=== PATIENT | female | born 1940 | race Hispanic/Latino ===

== ENCOUNTER → 2017-10-24 | Outpatient (CLI) | payer MEDICARE ==
[~2017-10-24] MED LIST: ASA81 MG; ATORVASTATIN CA20 MG PO; AZITHROMYCIN250 MG PO; CITALOPRAM HBR10 MG PO; CLOPIDOGREL75 MG PO; COLCRYS0.6 MG PO; DITROPAN XL5 M1; FAMOTIDINE20 MG PO; INDOCIN75 MG; METFORMIN HCL500 MG PO; RANEXA500 MG PO; REGADENOSON 0.4 MG/5 ML SYR IV ONE; SOTALOL PO; Z.0.FOSAMAX70 MG PO; Z.0.HYZAAR 100-251 E; Z.0.LOPRESSOR100 MG; Z.1.NITROFURANTOIN10
--- NOTE | 2017-10-25 07:50 | Cardiology Report ---
DATE OF STUDY: October 24, 2017 LEXISCAN NUCLEAR STRESS TEST INDICATION: Chest pain. TECHNIQUE: The patient was given 11 millicuries of Myoview. Resting images were obtained in the horizontal long axis, vertical long axis and short axis. The patient was then hooked up to the EKG machine and given IV Lexiscan infusion over 15 seconds. Immediately after Lexiscan infusion, the patient was given 30 millicuries of Myoview. Stress images were obtained in the horizontal long axis, vertical long axis and short axis. RESULTS 1. The resting EKG demonstrated normal sinus rhythm with some nonspecific ST and T wave changes. 2. There were no EKG changes and no symptoms during Lexiscan infusion. 3. The patient had some mildly decreased perfusion in the septum and anterior septum in both stress and rest. It represented a fixed defect. 4. There were normal left ventricular size and function with an ejection fraction of 54%. CONCLUSION: The patient has a small fixed defect in the septum and anterior septum. There is no reversible defect. There is no evidence of ischemia. There are normal left ventricular size and function with an ejection fraction of 54%. Job#: [id number]
== END ==
LOC: NM 10:47
PROVIDERS: ATTEND Internal Medicine Cardiovascular Disease
DX: I25.110 Atherosclerotic heart disease of native coronary artery with unstable angina pectoris (principal)
CPT/HCPCS: 78452; 93017; A9502

== ENCOUNTER 2019-12-13 03:53 | Emergency (ER) | payer MEDICARE ==
[~2019-12-13] VITALS: Ht 149.9 cm; Wt 52.6 kg
[~2019-12-13 03:53] MED LIST changes: -REGADENOSON 0.4 MG/5 ML SYR IV ONE
--- OUTSIDE RECORDS SUMMARY | 2019-12-13 03:56 | XMS REPORT | Continuity of Care Document ---
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, 2014 Active Procedures Date Description Comments Jul 24, 2014 smoking status never smoker Vital Signs Date Description Test Result Jul 24, 2014 weight E&M - 3141-9 WEIGHT 110 lb Jul 24, 2014 height E&M - 8302-2 HEIGHT 57 in Jul 24, 2014 blood pressure, systolic - 8480-6 BP SYSTOLIC 121 mm Hg Jul 24, 2014 blood pressure, diastolic - 8462-4 BP DIASTOLIC 68 mm Hg Jul 24, 2014 pulse rate E&M - 8867-4 PULSE RATE 61 /min Jul 24, 2014 temperature E&M TEMPERATURE 97.9 deg f Aug 13, 2014 weight E&M - 3141-9 WEIGHT 114.4 lb Aug 13, 2014 height E&M - 8302-2 HEIGHT 57 in Aug 13, 2014 temperature E&M TEMPERATURE 97.3 deg f Aug 13, 2014 pulse rate E&M - 8867-4 PULSE RATE 61 /min Aug 13, 2014 blood pressure, systolic - 8480-6 BP SYSTOLIC 113 mm Hg Aug 13, 2014 blood pressure, diastolic - 8462-4 BP DIASTOLIC 78 mm Hg
--- OUTSIDE RECORDS SUMMARY | 2019-12-13 03:56 | XMS REPORT | Continuity of Care Document ---
Author Author [facility] t Organization [facility] Address [address] [place] [address] [address]. [address] [place] [address] Phone Unavailable Care Team Providers Care Licensed Reactor Operator Name Role Phone MEDLATASHA Unavailable Payers Payer Name Policy Type Policy Number Effective Date Expiration Date S ource Problems Condition Name Condition Details Condition Category Status Onset Date Resolution Date Last Treatment Date Treating Clinician Comments Source SUBDURAL HEMATOMA SUBD URAL HEMATOMA Active 07/09/2014 Condition 08/13/2014 [facility] Condition Active 2014-07-09 00:00:00 2014-08-13 10:07:12 [facility] Allergies, Adverse Reactions, Alerts Allergy Name Allergy Type Status Severity Reaction(s) Onset Date Inacti ve Date Treating Clinician Comments Source No Known Allergies DA Active U 2019-04-10 00:00:00 [facility] No Known Contrast Allergies DA Active U 2001-03-06 00:00: 00 [facility] No Known Drug Allergies DA Active U 2001-03-06 00:00:00 [facility] No Known Food Allergies DA Active U 2001-03-06 00:00:00 [facility] No Known Other Allergies DA Active U 2001-03-06 00:00:00 [facility] Medications This patient has no known medications. Vital Signs Vital Name Observation Time Observation Value Comments Source Weight 2014-08-13 16:07:12 [facility] Height 2014-08-13 16:07:12 [facility] Temperature Oral (F) 2014-08-13 16:07:12 97.3 F [facility] Heart Rate 2014-08-13 16:07:12 [facility] Systolic (mm Hg) 2014-08-13 16:07:12 [facility] Diastolic (mm Hg) 2014-08-13 16:07:12 [facility] Weight 2014-07-24 19:46:10 [facility] Height 2014-07-24 19:46:10 [facility] Systolic (mm Hg) 2014-07-24 19:46:10 [facility] Diastolic (mm Hg) 2014-07-24 19:46:10 [facility] Heart Rate 2014-07-24 19:46:10 [facility] Temperature Oral (F) 2014-07-24 19:46:10 97.9 F [facility] Procedures This patient has no known procedures. Results Test Description Test Time Test Comments Results Result Comments Source - MRI BRAIN W WO CONT 2019-08-07 10:43:00 FAX: Sae Almazan MD [phone] [place]: B St: REG FAX: Cesar Lr MD [phone] Name: PHUONG OCASIO [facility]ly [facility] : 1940 Age/S: 78/F [address] Unit #: [id number] Loc: [place] [address] Phys: Sae Marie MD Acct: [id number] Dis Date: Status: REG CLI PHONE #: [phone] Exam Date: 08/07/2019 1031 FAX #: [phone] Reason: D32.0 EXAMS: CPT CODE: [id number] MRI BRAIN W WO CONT 80445 REASON FOR EXAM: D32.0 Exam Order Date: 08/07/2019 9:03 AM Attending M.D.: Sae Marie MD Procedure: - MRI BRAIN W WO CONT Comparison: Contrast-enhanced CT scan of the brain April 16, 2019 FINDINGS: Axial, sagittal, and coronal images of the head were obtained using T1, T2 weighted, inversion recovery, diffusion weighted, and gradient echo sequences. Intravenous gadolinium was given. Postsurgical changes of left-sided pterional craniotomy are better appreciated on the previous CT scan. No diffusion restricting or enhancing lesion is seen in the left middle cranial fossa to suggest resid ual meningioma. Small amount of sclerosis is seen in the left temporal lobe which may represent postsurgical changes. There are also microvascular ischemic changes of the periventricular white matter. No effacement of the cisterns or sulci and no midline shift. Additionally no abnormal meningeal enhancement is seen. No evidence of acute infarction. No intracranial hemorrhage or significant hemorrhagic products. IMPRESSION: Postsurgical changes of left peroneal craniotomy for a middle cranial fossa meningioma. No evidence of residual disease and no new intracranial masses. Microvascular ischemic changes of the white matter. Location: [facility] at 1043 Reported and signed by: Marty Gonzalez MD PAGE 1 Signed Report (CONTINUED) FAX: Sae Almazan MD [phone] [place]: St: [facility] FAX: Cesar Lr MD [phone] Name: PHUONG OCASIO [facility] : 1940 Age/S: 78/F [address] [facility] Unit #: [id number] [facility] [place] [address] Phys: Sae Marie MD Acct: [id number] Dis Date: Status: REG CLI PHONE #: [phone] Exam Date: 08/07/2019 1031 FAX #: [phone] Reason: D32.0 EXAMS: CPT CODE: [id number] MRI BRAIN W WO CONT 63349 <Continued> CC: Sae Marie MD; Cesar Palmer MD Technologist: Yinka Swann)(MR) Trnscrd Date/Time/By: 08/07/2019 (1043) : By: [email or web address] Orig Print D/T: S: 08/07/2019 (0274) PAGE 2 Signed Report BRAIN/MENINGES 2019-04-24 14:23:00 RUN DATE: 04/24/19 [facility] PAGE 1 RUN TIME: 1423 Specimen Inquiry RUN USER: INTERFACE PATIENT: PHUONG OCASIO LOC: [place] U #: [id number] AGE/SX: 78/F ROOM: [facility] RE04/15/19REG DR: Sae Marie MD : 40 BED: A DIS: 04/19/19 STATUS: DIS IN TLOC: SPEC #: [id number] RECD: 04/15/19 STATUS: ZEB CEJA #: [id number] PARRISH: 04/15/19 DR: Sae Marie MD ENTERED: 04/15/19 SP TYPE: BRAIN OTHR DR: Cesar Palmer MD ORDERED: GROSS COPIES TO: Sae Marie MD [address] [place], [place] [address] Cesar Palmer MD [address] [facility] [place], [place] [address] M ANTHONYKERS: FROZEN SECTIONS PROCEDURES: GROSS (04/24/19-1302) TISSUES: 1. BRAIN, NOS 2. BRAIN, NOS - TUMOR 3. BRAIN, NOS - TUMOR CLINICAL HISTORY COLLECTION DATE: 04/15/19 LEFT MEDIAL TEMPORAL AND SPHEROID WING MENINGIOMA COMMENT The histologic sections show a lesion formed of spindled cells with a whorled pattern and scattered psammoma bodies. The features are compatible with meningioma. Overt atypical features are not appreciated. The case was sent in consultation to Dr. Conchita Pena for classification and proliferation marker (Ki-67). Please refer to the consult report below. 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 It consists of two small portions of turner soft tissue measuring 0.4 and 0.5 cm in greatest dimension. Intraoperative touch preps are obtained. The specimen is entirely submitted as FSA. Frozen section diagnosis FSA/TP1: SUGGESTIVE OF MENINGIOMA (FA) The staining of the fresh frozen section is adequate. Reported at 9:50 am on 04/15/19 (FA) Specimen (2) is received in formalin, labeled with the patient's name and identified as "brain tumor" and consists of multiple portions of turner-pink soft tissue measuring 3.0 x 3.0 x 2.0 cm in aggregate. Cut section reveals turner-pink cut surface. Multiple financial sales representative portions are submitted as (2A-2C). Specimen (3) is received and labeled as "brain tumor", it is received in a suction bag and are multiple portions of turner soft tissue measuring 1.0 x 0.7 x 0.2 cm in aggregate. It is entirely submitted as (3A). GROSS PERFORMED AT [facility] [address] [place] [address] [id number] (p)[phone] MICROSCOPIC All of the stains, including any controls performed, stain appropriately. 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 The Ki-67 labeling index is 4 .2% which is appropriate for WHO grade I meningioma. MICROSCOPIC DESCRIPTION: Each section has similar histopathologic features including a tumor that is spindled with vague whirl formation and occasional psammoma body formation. No atypical features are identified. The tumor is moderately cellular. Mitoses are not excessive. No brain invasion is identified. THe morphologic phenotype is transitional. Immunoperoxidase stains for Ki-67 confirm a labeling index of 4.2%. PERFORMING SITE Diagnosis performed at: [facility] [address] [place] [address] Signed SIGNATURE ON FILE Jorden Valles MD 04/24/19 1423 END OF REPORT GLUBED 2019-04-19 11:42:00 Test Item GLUBED (test code = GLUBED) 181 mg/dL 74-106 H Performed by certified seismograph operator helper at [facility] [id number] 07:29:00* Test Item Value Reference Range Interpretation Comments GLUBED (test code = GLUBED) 129 mg/dL 74-106 H Performed by certified seismograph operator helper at [facility] [id number] 23:58:00* Test Item Value Reference Range Interpretation Comments GLUBED (test code = GLUBED) 142 mg/dL 74-106 H Performed by certified seismograph operator helper at [facility] [id number] 20:31:00* Test Item Value Reference Range Interpretation Comments GLUBED (test code = GLUBED) 151 mg/dL 74-106 H Performed by certified seismograph operator helper at [facility] [id number] 12:11:00* Test Item Value Reference Range Interpretation Comments GLUBED (test code = GLUBED) 154 mg/dL 74-106 H Performed by certified seismograph operator helper at [facility] [id number] 08:22:00* Test Item Value Reference Range Interpretation Comments GLUBED (test code = GLUBED) 112 mg/dL 74-106 H Performed by certified seismograph operator helper at [facility] [id number] 20:25:00* Test Item Value Reference Range Interpretation Comments GLUBED (test code = GLUBED) 170 mg/dL 74-106 H Performed by certified seismograph operator helper at [facility] [id number] 16:41:00* Test Item Value Reference Range Interpretation Comments GLUBED (test code = GLUBED) 220 mg/dL 74-106 H Performed by certified seismograph operator helper at [facility] [id number] 12:47:00* Test Item Value Reference Range Interpretation Comments GLUBED (test code = GLUBED) 204 mg/dL 74-106 H Performed by certified seismograph operator helper at [facility] [id number] 08:25:00* Test Item Value Reference Range Interpretation Comments GLUBED (test code = GLUBED) 145 mg/dL 74-106 H Performed by certified seismograph operator helper at [facility] [id number] 21:01:00* Test Item Value Reference Range Interpretation Comments GLUBED (test code = GLUBED) 154 mg/dL 74-106 H Performed by certified seismograph operator helper at [facility] [id number] 15:44:00* Test Item Value Reference Range Interpretation Comments GLUBED (test code = GLUBED) 167 mg/dL 74-106 H Performed by certified seismograph operator helper at [facility] [id number] 11:37:00* Test Item Value Reference Range Interpretation Comments GLUBED (test code = GLUBED) 171 mg/dL 74-106 H Performed by certified seismograph operator helper at [facility] [id number] 07:49:00* Test Item Value Reference Range Interpretation Comments GLUBED (test code = GLUBED) 176 mg/dL 74-106 H Performed by certified seismograph operator helper at [facility] - CT HD/BR W W/O [id number] 06:11:00 Name: PHUONG OCASIO [facility] : 1940 Age/S: 78 / F [address] [facility] Unit #: [id number] Loc: [place] [address] Phys: Sae Marie MD Acct: [id number] Dis Date: Status: ADM IN PHONE #: [phone] Exam Date: 04/16/2019 0455 FAX #: [phone] Reason: Post-op EXAMS: CPT CODE: [id number] CT HD/BR W W/O CONT 87251 HISTORY: Left medial temporal and sphenoid wing meningioma TECHNIQUE: Pre- and postcontrast 2.[address] of the head. Examination acquired within 24 hours of arrival. Automated exposure control for dose reduction. COMPARISON: Previous day FINDINGS: Status post left pterional craniotomy with complete removal of left middle cranial fossa meningioma. Small postoperative extra-axial fluid and pneumocephalus. No acute hemorrhage. No CT evidence of acute infarct. Mild periventricular chronic microvascular ischemic changes. No abnormal enhancement. No hydrocephalus. No extra-axial fluid collection. Atherosclerotic vascular calcification of the carotid siphons. 4 mm distal left ICA aneurysm is unchanged. Opacified left maxillary sinus. Mastoid air cells and middle ear cavities are clear. Bilateral lens implants. Left scalp postsurgical changes and skin kobe. IMPRESSION: Status post left pterional craniotomy with complete removal of left middle cranial fossa meningioma. at 0611 Reported and signed by: Azra Butt D.O. CC: Sae Marie MD; Cesar Palmer MD Technologist:JEFF MURGUIA CTDI: DLP: Trnscb Date/Time: 04/16/2019 (0611) [email or web address] Orig Print D/T: S: 04/16/2019 (0614) PAGE 1 Signed Report - CT HEAD/BRAIN [id number] 06:06:00 Name: PHUONG OCASIO [facility] : 1940 Age/S: 78 / F [address] Unit #: [id number] Loc: [place] [address] Phys: Sae Marie MD Acct: [id number] Dis Date: Status: ADM IN PHONE #: [phone] Exam Date: 04/15/201944 FAX #: [phone] Reason: SURGERY Report Has Been Amended EXAMS: CPT CODE: [id number] CT HEAD/BRAIN W/CONT 62044 Addendum - 04/16/2019 SIGNED 04/16/2019 ADDENDUM: [id number] CT/CTHDBRW Findings communicated with Dr. Marie on 04/15/19 0801 hours. at 0606 Reported and signed by: Azra Butt D.O. Transcribed: 04/16/2019 (0606) [email or web address] Report HISTORY: Left medial temporal and sphenoid wing meningioma TECHNIQUE: Contrast-enhanced 1.[address] of the head after intravenous administration of 100 mL Isovue contrast sagittal and coronal reformatted images were generated. Examination acquired within 24 hours of arrival. Automated exposure control for dose reduction. COMPARISON: None FINDINGS: Avidly enhancing left middle cranial fossa meningioma, measuring 3.2 x 2.1 x 3.0 cm (AP x TV x CC). Lesion abuts the left cavernous sinus and Meckel's cave without evidence of infiltration. Associated lateral displacement of the left temporal lobe without significant mass effect or herniation. No abnormal enhancement. No acute hemorrhage. No CT evidence of acute infarct. Mild periventricular chronic microvascular ischemic changes. No intracranial mass or mass effect. No hydrocephalus. No extra-axial fluid collection. Atherosclerotic vascular calcification of the carotid siphons. 4 mm p osteriorly projecting saccular aneurysm of the distal left supraclinoid IC A. Opacified left maxillary sinus. Mastoid air cells and middle ea r cavities are clear. Bilateral lens implants. Calvarium and skull base are intact. IMPRESSION: PAGE 1 Signed Report (CONTINUED) Name: PHUONG OCASIO [facility] : 1940 Age/S: 78 / F [address] Unit #: [id number] Loc: [place] [address] Phys: Sae Marie MD Acct: [id number] Dis Date: Status: ADM IN PHONE #: [phone] Exam Date: 743 FAX #: [phone] Reason: SURGERY Report Has Been Am ended EXAMS: CPT CODE: [id number] CT HEAD/BRAIN W/CONT 60211 < Continued> Avidly enhancing 3.2 cm left middle cranial fossa meningioma. 4 mm posteriorly projecting saccular aneurysm of the distal left supraclinoid ICA. at 0808 Reported and signed by: Azra Butt D.O. CC: Sae Marie MD; Cesar Palmer MD Technologist:Jose Collins RT(R),(MR),(CT); CTDI: DLP: Trnscb Date/Time: 04/15/2019 (08) [email or web address] Orig Print D/T: S: 04/15/2019 (0812) PAGE 2 Signed Report BASIC METABOLIC [id number] 04:28:00* Test Item Value Reference Range Interpretation Comments SODIUM (test code = NA) 146 mmol/L 136-145 H POTASSIUM (test code = K) 3.5 mmol/L 3.5-5.1 N CHLORIDE (test code = CL) 112.0 mmol/L 98-107 H CARBON DIOXIDE (test code = CO2) 22.0 mmol/L 21-32 N ANION GAP (test code = GAP) 15.5 10-20 N GLUCOSE (test code = GLU) 166 mg/dL 74-106 H BLOOD UREA NITROGEN (test code = BUN) 16 mg/dL 7-18 N GLOMERULAR FILTRATION RATE (test code = GFR) > 60 mL/min >=60 Estimated GFR by using Modified MDRD formula.Chronic kidney disease is defined as either kidney damageor GFR <60 mL/min/1.73 m2 for >3 months. CREATININE (test code = CREAT) 0.70 mg/dL 0.55-1.02 N Note change in reference range due to change in reagent. BUN/CREATININE RATIO (test code = BUN/CREA) 23.2 10-20 H CALCIUM (test code = CA) 8.4 mg/dL 8.5-10.1 L [id number] 04:28:00* Test Item Value Reference Range Interpretation Comments MAGNESIUM (test code = MAG) 1.5 mg/dL 1.8-2.4 L BASIC METABOLIC [id number] 04:22:00* Test Item Value Reference Range Interpretation Comments SODIUM (test code = NA) 146 mmol/L 136-145 H POTASSIUM (test code = K) 3.5 mmol/L 3.5-5.1 N CHLORIDE (test code = CL) 112.0 mmol/L 98-107 H CARBON DIOXIDE (test code = CO2) mmol/L 21-32 ANION GAP (test code = GAP) 10-20 GLUCOSE (test code = GLU) mg/dL 74-106 BLOOD UREA NITROGEN (test code = BUN) mg/dL 7-18 GLOMERULAR FILTRATION RATE (test code = GFR) mL/min >=60 CREATININE (test code = CREAT) mg/dL 0.55-1.02 BUN/CREATININE RATIO (test code = BUN/CREA) 10-20 CALCIUM (test code = CA) mg/dL 8.5-10.1 [id number] 04:22:00* Test Item Value Reference Range Interpretation Comments MAGNESIUM (test code = MAG) mg/dL 1.8-2.4 CBC W/O [id number] 04:08:00* Test Item Value Reference Range Interpretation Comments WHITE BLOOD CELL (test code = WBC) 15.9 K/mm3 4.5-12.5 H RED BLOOD CELL (test code = RBC) 4.12 mill/mm3 3.7-5.2 N HEMOGLOBIN (test code = HGB) 8.4 gram/dL 11.5-15.5 L HEMATOCRIT (test code = HCT) 29.4 % 36.0-46.0 L MEAN CELL VOLUME (test code = MCV) 71.4 fL 80-98 L MEAN CELL HGB (test code = MCH) 20.4 picogram 27.0-33.0 L MEAN CELL HGB CONCETRATION (test code = MCHC) 28.6 gram/dL 33.0-36. 0 L RED CELL DISTRIBUTION WIDTH (test code = RDW) 24.8 % 11.6-16. 2 H PLATELET COUNT (test code = PLT) 296 K/mm3 150-450 N MEAN PLATELET VOLUME (test code = MPV) 9.4 fL 6.7-11.0 N [id number] 21:16:00* Test Item Value Reference Range Interpretation Comments GLUBED (test code = GLUBED) 134 mg/dL 74-106 H Performed by certified seismograph operator helper at [facility] - XR CHEST 1 [id number] 14:20:00 FAX: Santos Hoskins [phone] [place]: St: ADM FAX: Sae Almazan MD [phone] FAX: Cesar Lr MD [phone] Name: PHUONG OCASIO [facility] : 1940 Age/S: 78/F [address] [facility] Unit #: [id number] Loc: [address] [address] Phys: Santos Christian MD Acct: [id number] Dis Date: Status: ADM IN ONE #: [phone] Exam Date: 04/15/2019 1300 FAX #: [phone] Reason: CENTRAL LINE PLACEMENT EXAMS: CPT CODE: [id number] XR CHEST 1 V 88692 HISTORY: Centr al line placement. COMPARISON: April 10, 2019. Righ t jugular central line with the tip projected over the cavoatrial junction without pneumothorax. No acute infiltrates, effusion or congestion is noted. Mild cardiomegaly. Retrocardiac hiatal hernia. IMPRESSION: No acute infiltrates, effusion or congestion. Ri ght jugular central line with the tip projected over the cavoatrial junc tion without pneumothorax. at 1420 Reported and signed by: Miles Mcdonald M.D. CC: Santos Christian MD; Federico Marie MD; Cesar Palmer MD Technologist: Rabia Swann) [facility] Date/Time/By: 04/15/2019 (1420) : By: [email or web address] Orig Print D/T: S: 04/15/2019 (2340) PAGE 1 Signed Report - CT HEAD/BRAIN W/CONT 2019-04-15 08:08:00 Name: PHUONG OCASIO [facility] : 1940 Age/S: 78 / F [address] [facility] Unit #: [id number] Loc: [place] [address] Phys: Sae Marie MD Acct: [id number] Dis Date: Status: PRE IN PHONE #: [phone] Exam Date: 04/15/2019743 FAX #: [phone] Reason: SURGERY EXAMS: CPT CODE: [id number] CT HEAD/BRAIN W/CONT 58839 HISTORY: Left medial temporal and sphenoid wing meningioma TECHNIQUE: Contrast-enhanced 1.[address] of the head after intravenous administration of 100 mL Isovue contrast sagittal and coronal reformatted images were generated. Examination acquired within 24 hours of arrival. Automated exposure control for dose reduction. COMPARISON: None FINDINGS: Avidly enhancing left middle cranial fossa meningioma, measuring 3.2 x 2.1 x 3.0 cm (AP x TV x CC). Lesion abuts the left cavernous sinus and Meckel's cave without evidence of infiltration. Associated lateral displacement of the left temporal lobe without significant mass effect or herniation. No abnormal enhancement. No acute hemorrhage. No CT evidence of acute infarct. Mild periventricular chronic microvascular ischemic changes. No intracranial mass or mass effect. No hydrocephalus. No extra-axial fluid collection. Atherosclerotic vascular calcification of the carotid siphons. 4 mm posteriorly projecting saccular aneurysm of the distal left supraclinoid ICA. Opacified left maxillary sinus. Mastoid air cells and middle ear cavities are clear. Bilateral lens implants. Calvariu m and skull base are intact. IMPRESSION: Avidly enhancing 3.2 cm left middle cranial fossa meningioma. 4 mm posteriorly projecting saccular aneurysm of the distal left supraclinoid ICA. at 0808 Reported and signed by: Azra Butt D.O. PAGE 1 Signed Report ( CONTINUED) Name: PHUONG OCASIO [facility] : 1940 Age/S: 78 / F [address] nit #: [id number] Loc: [place] [address] Phys: Sae Marie MD Acct: [id number] Dis Date: Status: PRE IN PHONE #: [phone] Exam Date: 04/15/2019 0744 FAX #: [phone] Reason: SURGERY EXAMS: CPT CODE: [id number] CT HEAD/BRAIN W/CONT [address]1972 <Continued> CC: Sae Marie MD; Cesar Palmer MD Technologist:Jose Collins RT(R),(MR),(CT); CTDI: DLP: Trnscb Date/Time: 04/15/2019 (807) [email or web address] Orig Print D/T: S: 04/15/2019 (811) PAGE 2 Signed Report [id number] 07:45:00* Test Item Value Reference Range Interpretation Comments GLUBED (test code = GLUBED) 119 mg/dL 74-106 H Performed by certified seismograph operator helper at [facility] CBC W/AUTO [id number] 18:15:00* Test Item Value Reference Range Interpretation Comments WHITE BLOOD CELL (test code = WBC) 7.1 K/mm3 4.5-12.5 N RED BLOOD CELL (test code = RBC) 4.60 mill/mm3 3.7-5.2 N HEMOGLOBIN (test code = HGB) 9.0 gram/dL 11.5-15.5 L HEMATOCRIT (test code = HCT) 32.9 % 36.0-46.0 L MEAN CELL VOLUME (test code = MCV) 71.5 fL 80-98 L MEAN CELL HGB (test code = MCH) 19.6 picogram 27.0-33.0 L MEAN CELL HGB CONCETRATION (test code = MCHC) 27.4 gram/dL 33.0-36. 0 L RED CELL DISTRIBUTION WIDTH (test code = RDW) 23.9 % 11.6-16. 2 H RED CELL DISTRIBUTION WIDTH SD (test code = RDW-SD) 59.7 fL 37 .0-51.0 H PLATELET COUNT (test code = PLT) 363 K/mm3 150-450 N MEAN PLATELET VOLUME (test code = MPV) 9.2 fL 6.7-11.0 N NEUTROPHIL % (test code = NT%) 66.5 % 39.0-69.0 N IMMATURE GRANULOCYTE % (test code = IG%) 0.4 % 0.0-5.0 N LYMPHOCYTE % (test code = LY%) 22.4 % 25.0-55.0 L MONOCYTE % (test code = MO%) 8.4 % 0.0-10.0 N EOSINOPHIL % (test code = EO%) 1.6 % 0.0-5.0 N BASOPHIL % (test code = BA%) 0.7 % 0.0-1.0 N NUCLEATED RBC % (test code = NRBC%) 0.0 % 0-0 N NEUTROPHIL # (test code = NT#) 4.69 K/mm3 1.8-7.7 N IMMATURE GRANULOCYTE # (test code = IG#) 0.03 x10 3/uL 0-0.03 N LYMPHOCYTE # (test code = LY#) 1.58 K/mm3 1.0-5.0 N MONOCYTE # (test code = MO#) 0.59 K/mm3 0-0.8 N EOSINOPHIL # (test code = EO#) 0.11 K/mm3 0.0-0.5 N BASOPHIL # (test code = BA#) 0.05 K/mm3 0.0-0.2 N NUCLEATED RBC # (test code = NRBC#) 0.00 K/mm3 0.0-0.1 N MANUAL DIFF REQUIRED (test code = MDIFF) NO, ONLY SCAN NEEDED DIFFERENTIAL [id number] 18:15:00* Test Item Value Reference Range Interpretation Comments STAIN ACCEPTABILITY (test code = STN ACCEPTABLE) STAIN ACCEPTABLE POLYCHROMASIA (test code = POLC) 1+ HYPOCHROMIA (test code = HYPO) 2+ POIKILOCYTOSIS (test code = POIK) 1+ ANISOCYTOSIS (test code = ANISO) 2+ MICROCYTOSIS (test code = MICR) 2+ ELLIPTOCYTES (test code = ELL) 1+ PLATELET ESTIMATE (test code = PLTEST) ADEQUATE PLATELET MORPHOLOGY (test code = PLTMORPH) NORMAL PROTHROMBIN [id number] 18:07:00* Test Item Value Reference Range Interpretation Comments PROTHROMBIN TIME PATIENT (test code = PTP) 11.7 seconds 9.0-14.0 N INTERNATIONAL NORMAL RATIO (test code = INR) 1.0 0.8-1.2 N The therapeutic range for oral anticoagulant therapy formost indications is an international normalized ratio (INR)of between 2.0 and 3.0. The recommended therapeutic INRrange for various clinical situations is listed below: Clinical Situation INR range Pulmonary e mbolism treatment (2.0-3.0)Venous thrombosis treatmentVenous thrombosis prophylaxis (high risk surgery)Prevention of systemic embolism from: Acute myocardial infarction Valvular heart disease Atrial fibrillation Mechanical prosthetic heart valves (2.5-3.5) THROMBOPLASTIN TIME [id number] 18:07:00* Test Item Value Reference Range Interpretation Comments THROMBOPLASTIN TIME PARTIAL (test code = PTT) 36.8 seconds 25.0-36. 5 H BASIC METABOLIC [id number] 17:46:00* Test Item Value Reference Range Interpretation Comments SODIUM (test code = NA) 143 mmol/L 136-145 N POTASSIUM (test code = K) 3.4 mmol/L 3.5-5.1 L CHLORIDE (test code = CL) 105.0 mmol/L 98-107 N CARBON DIOXIDE (test code = CO2) 30.0 mmol/L 21-32 N ANION GAP (test code = GAP) 11.4 10-20 N GLUCOSE (test code = GLU) 146 mg/dL 74-106 H BLOOD UREA NITROGEN (test code = BUN) 19 mg/dL 7-18 H GLOMERULAR FILTRATION RATE (test code = GFR) 54 mL/min >=60 Estimated GFR by using Modified MDRD formula.Chronic kidney disease is defined as either kidney damageor GFR <60 mL/min/1.73 m2 for >3 months. CREATININE (test code = CREAT) 1.00 mg/dL 0.55-1.02 N Note change in reference range due to change in reagent. BUN/CREATININE RATIO (test code = BUN/CREA) 20.0 10-20 N CALCIUM (test code = CA) 10.0 mg/dL 8.5-10.1 N CBC W/AUTO [id number] 17:39:00* Test Item Value Reference Range Interpretation Comments WHITE BLOOD CELL (test code = WBC) 7.1 K/mm3 4.5-12.5 N RED BLOOD CELL (test code = RBC) 4.60 mill/mm3 3.7-5.2 N HEMOGLOBIN (test code = HGB) 9.0 gram/dL 11.5-15.5 L HEMATOCRIT (test code = HCT) 32.9 % 36.0-46.0 L MEAN CELL VOLUME (test code = MCV) 71.5 fL 80-98 L MEAN CELL HGB (test code = MCH) 19.6 picogram 27.0-33.0 L MEAN CELL HGB CONCETRATION (test code = MCHC) 27.4 gram/dL 33.0-36. 0 L RED CELL DISTRIBUTION WIDTH (test code = RDW) 23.9 % 11.6-16. 2 H RED CELL DISTRIBUTION WIDTH SD (test code = RDW-SD) 59.7 fL 37 .0-51.0 H PLATELET COUNT (test code = PLT) 363 K/mm3 150-450 N MEAN PLATELET VOLUME (test code = MPV) 9.2 fL 6.7-11.0 N NEUTROPHIL % (test code = NT%) 66.5 % 39.0-69.0 N IMMATURE GRANULOCYTE % (test code = IG%) 0.4 % 0.0-5.0 N LYMPHOCYTE % (test code = LY%) 22.4 % 25.0-55.0 L MONOCYTE % (test code = MO%) 8.4 % 0.0-10.0 N EOSINOPHIL % (test code = EO%) 1.6 % 0.0-5.0 N BASOPHIL % (test code = BA%) 0.7 % 0.0-1.0 N NUCLEATED RBC % (test code = NRBC%) 0.0 % 0-0 N NEUTROPHIL # (test code = NT#) 4.69 K/mm3 1.8-7.7 N IMMATURE GRANULOCYTE # (test code = IG#) 0.03 x10 3/uL 0-0.03 N LYMPHOCYTE # (test code = LY#) 1.58 K/mm3 1.0-5.0 N MONOCYTE # (test code = MO#) 0.59 K/mm3 0-0.8 N EOSINOPHIL # (test code = EO#) 0.11 K/mm3 0.0-0.5 N BASOPHIL # (test code = BA#) 0.05 K/mm3 0.0-0.2 N NUCLEATED RBC # (test code = NRBC#) 0.00 K/mm3 0.0-0.1 N MANUAL DIFF REQUIRED (test code = MDIFF) NO, ONLY SCAN NEEDED DIFFERENTIAL [id number] 17:39:00* Test Item Value Reference Range Interpretation Comments STAIN ACCEPTABILITY (test code = STN ACCEPTABLE) CABOT RINGS (test code = CAB) MORPHOLOGY COMMENT (test code = MOC) PLATELET ESTIMATE (test code = PLTEST) PLATELET MORPHOLOGY (test code = PLTMORPH) BASIC METABOLIC [id number] 17:39:00* Test Item Value Reference Range Interpretation Comments SODIUM (test code = NA) 143 mmol/L 136-145 N POTASSIUM (test code = K) 3.4 mmol/L 3.5-5.1 L CHLORIDE (test code = CL) 105.0 mmol/L 98-107 N CARBON DIOXIDE (test code = CO2) mmol/L 21-32 ANION GAP (test code = GAP) 10-20 GLUCOSE (test code = GLU) mg/dL 74-106 BLOOD UREA NITROGEN (test code = BUN) mg/dL 7-18 GLOMERULAR FILTRATION RATE (test code = GFR) mL/min >=60 CREATININE (test code = CREAT) mg/dL 0.55-1.02 BUN/CREATININE RATIO (test code = BUN/CREA) 10-20 CALCIUM (test code = CA) mg/dL 8.5-10.1 CBC W/AUTO [id number] 17:39:00* Test Item Value Reference Range Interpretation Comments WHITE BLOOD CELL (test code = WBC) 7.1 K/mm3 4.5-12.5 N RED BLOOD CELL (test code = RBC) 4.60 mill/mm3 3.7-5.2 N HEMOGLOBIN (test code = HGB) 9.0 gram/dL 11.5-15.5 L HEMATOCRIT (test code = HCT) 32.9 % 36.0-46.0 L MEAN CELL VOLUME (test code = MCV) 71.5 fL 80-98 L MEAN CELL HGB (test code = MCH) 19.6 picogram 27.0-33.0 L MEAN CELL HGB CONCETRATION (test code = MCHC) 27.4 gram/dL 33.0-36. 0 L RED CELL DISTRIBUTION WIDTH (test code = RDW) 23.9 % 11.6-16. 2 H RED CELL DISTRIBUTION WIDTH SD (test code = RDW-SD) 59.7 fL 37 .0-51.0 H PLATELET COUNT (test code = PLT) 363 K/mm3 150-450 N MEAN PLATELET VOLUME (test code = MPV) 9.2 fL 6.7-11.0 N NEUTROPHIL % (test code = NT%) 66.5 % 39.0-69.0 N IMMATURE GRANULOCYTE % (test code = IG%) 0.4 % 0.0-5.0 N LYMPHOCYTE % (test code = LY%) 22.4 % 25.0-55.0 L MONOCYTE % (test code = MO%) 8.4 % 0.0-10.0 N EOSINOPHIL % (test code = EO%) 1.6 % 0.0-5.0 N BASOPHIL % (test code = BA%) 0.7 % 0.0-1.0 N NUCLEATED RBC % (test code = NRBC%) 0.0 % 0-0 N NEUTROPHIL # (test code = NT#) 4.69 K/mm3 1.8-7.7 N IMMATURE GRANULOCYTE # (test code = IG#) 0.03 x10 3/uL 0-0.03 N LYMPHOCYTE # (test code = LY#) 1.58 K/mm3 1.0-5.0 N MONOCYTE # (test code = MO#) 0.59 K/mm3 0-0.8 N EOSINOPHIL # (test code = EO#) 0.11 K/mm3 0.0-0.5 N BASOPHIL # (test code = BA#) 0.05 K/mm3 0.0-0.2 N NUCLEATED RBC # (test code = NRBC#) 0.00 K/mm3 0.0-0.1 N MANUAL DIFF REQUIRED (test code = MDIFF) NO, ONLY SCAN NEEDED DIFFERENTIAL [id number] 17:39:00* Test Item Value Reference Range Interpretation Comments STAIN ACCEPTABILITY (test code = STN ACCEPTABLE) CABOT RINGS (test code = CAB) MORPHOLOGY COMMENT (test code = MOC) PLATELET ESTIMATE (test code = PLTEST) PLATELET MORPHOLOGY (test code = PLTMORPH) CBC W/AUTO [id number] 17:39:00* Test Item Value Reference Range Interpretation Comments WHITE BLOOD CELL (test code = WBC) 7.1 K/mm3 4.5-12.5 N RED BLOOD CELL (test code = RBC) 4.60 mill/mm3 3.7-5.2 N HEMOGLOBIN (test code = HGB) 9.0 gram/dL 11.5-15.5 L HEMATOCRIT (test code = HCT) 32.9 % 36.0-46.0 L MEAN CELL VOLUME (test code = MCV) 71.5 fL 80-98 L MEAN CELL HGB (test code = MCH) 19.6 picogram 27.0-33.0 L MEAN CELL HGB CONCETRATION (test code = MCHC) 27.4 gram/dL 33.0-36. 0 L RED CELL DISTRIBUTION WIDTH (test code = RDW) 23.9 % 11.6-16. 2 H RED CELL DISTRIBUTION WIDTH SD (test code = RDW-SD) 59.7 fL 37 .0-51.0 H PLATELET COUNT (test code = PLT) 363 K/mm3 150-450 N MEAN PLATELET VOLUME (test code = MPV) 9.2 fL 6.7-11.0 N NEUTROPHIL % (test code = NT%) 66.5 % 39.0-69.0 N IMMATURE GRANULOCYTE % (test code = IG%) 0.4 % 0.0-5.0 N LYMPHOCYTE % (test code = LY%) 22.4 % 25.0-55.0 L MONOCYTE % (test code = MO%) 8.4 % 0.0-10.0 N EOSINOPHIL % (test code = EO%) 1.6 % 0.0-5.0 N BASOPHIL % (test code = BA%) 0.7 % 0.0-1.0 N NUCLEATED RBC % (test code = NRBC%) 0.0 % 0-0 N NEUTROPHIL # (test code = NT#) 4.69 K/mm3 1.8-7.7 N IMMATURE GRANULOCYTE # (test code = IG#) 0.03 x10 3/uL 0-0.03 N LYMPHOCYTE # (test code = LY#) 1.58 K/mm3 1.0-5.0 N MONOCYTE # (test code = MO#) 0.59 K/mm3 0-0.8 N EOSINOPHIL # (test code = EO#) 0.11 K/mm3 0.0-0.5 N BASOPHIL # (test code = BA#) 0.05 K/mm3 0.0-0.2 N NUCLEATED RBC # (test code = NRBC#) 0.00 K/mm3 0.0-0.1 N MANUAL DIFF REQUIRED (test code = MDIFF) NO, ONLY SCAN NEEDED DIFFERENTIAL [id number] 17:39:00* Test Item Value Reference Range Interpretation Comments STAIN ACCEPTABILITY (test code = STN ACCEPTABLE) MORPHOLOGY COMMENT (test code = MOC) PLATELET ESTIMATE (test code = PLTEST) PLATELET MORPHOLOGY (test code = PLTMORPH) CBC W/AUTO [id number] 17:39:00* Test Item Value Reference Range Interpretation Comments WHITE BLOOD CELL (test code = WBC) 7.1 K/mm3 4.5-12.5 N RED BLOOD CELL (test code = RBC) 4.60 mill/mm3 3.7-5.2 N HEMOGLOBIN (test code = HGB) 9.0 gram/dL 11.5-15.5 L HEMATOCRIT (test code = HCT) 32.9 % 36.0-46.0 L MEAN CELL VOLUME (test code = MCV) 71.5 fL 80-98 L MEAN CELL HGB (test code = MCH) 19.6 picogram 27.0-33.0 L MEAN CELL HGB CONCETRATION (test code = MCHC) 27.4 gram/dL 33.0-36. 0 L RED CELL DISTRIBUTION WIDTH (test code = RDW) 23.9 % 11.6-16. 2 H RED CELL DISTRIBUTION WIDTH SD (test code = RDW-SD) 59.7 fL 37 .0-51.0 H PLATELET COUNT (test code = PLT) 363 K/mm3 150-450 N MEAN PLATELET VOLUME (test code = MPV) 9.2 fL 6.7-11.0 N NEUTROPHIL % (test code = NT%) 66.5 % 39.0-69.0 N IMMATURE GRANULOCYTE % (test code = IG%) 0.4 % 0.0-5.0 N LYMPHOCYTE % (test code = LY%) 22.4 % 25.0-55.0 L MONOCYTE % (test code = MO%) 8.4 % 0.0-10.0 N EOSINOPHIL % (test code = EO%) 1.6 % 0.0-5.0 N BASOPHIL % (test code = BA%) 0.7 % 0.0-1.0 N NUCLEATED RBC % (test code = NRBC%) 0.0 % 0-0 N NEUTROPHIL # (test code = NT#) 4.69 K/mm3 1.8-7.7 N IMMATURE GRANULOCYTE # (test code = IG#) 0.03 x10 3/uL 0-0.03 N LYMPHOCYTE # (test code = LY#) 1.58 K/mm3 1.0-5.0 N MONOCYTE # (test code = MO#) 0.59 K/mm3 0-0.8 N EOSINOPHIL # (test code = EO#) 0.11 K/mm3 0.0-0.5 N BASOPHIL # (test code = BA#) 0.05 K/mm3 0.0-0.2 N NUCLEATED RBC # (test code = NRBC#) 0.00 K/mm3 0.0-0.1 N MANUAL DIFF REQUIRED (test code = MDIFF) NO, ONLY SCAN NEEDED DIFFERENTIAL [id number] 17:39:00* Test Item Value Reference Range Interpretation Comments STAIN ACCEPTABILITY (test code = STN ACCEPTABLE) CABOT RINGS (test code = CAB) MORPHOLOGY COMMENT (test code = MOC) PLATELET ESTIMATE (test code = PLTEST) PLATELET MORPHOLOGY (test code = PLTMORPH) - XR CHEST 2 [id number] 16:58:00 FAX: Sae Almazan MD [phone] [place]: O St: PRE FAX: Cesar Lr MD [phone] Name: PHUONG OCASIO [facility] : 1940 Age/S: 78/F Linus Ravi Unit #: [id number] Loc: [place] [address] Phys: Sae Marie MD Acct: [id number] Dis Date: Status: PRE IN PHONE #: [phone] Exam Date: 04/10/2019 1654 FAX #: [phone] Reason: PRE OP EXAMS: CPT CODE: [id number] XR CHEST 2 V [id number] REASON FOR EXAM: PRE OP Exam Order Date: 04/10/2019 4:47 PM Ordering Mono: Sae Marie MD PROCEDURE: - XR CHEST 2 V COMPARISON: FINDINGS: PA and lateral views of the chest show clear lungs without evidence of consolidation. No evidence of effusion. The heart size is within normal limits. Pulmonary vasculatures are unremarkable. The osseous structures are grossly intact. Small hiatal hernia. IMPRESSION: No active disease. at 1653 Reported and signed by: Avery Escobedo M.D. CC: Sae Quiroz MD; Cesar Palmer MD Technologist: RT Sae(R) Trnscrd Date/Time/By: 04/10/2019 (16 58) : By: PreetiVTL PAGE 1 Signed Report Stress Test - Treadmill ONLY [place] [address] Patient Name : PHUONG OCASIO V MR #: [id number] : 1940 Age/Sex: 76/F Adm Physician : LATASHA JOVEL MD Admit Date : Location : [place] Room/Bed : REPORT: Cardiology Report DATE OF STUDY: October 24, 2017 LEXISCAN NUCLEAR STRESS TEST INDICATION: Chest pain. TECHNIQUE: The patient was given 11 millicuries of Myoview. Resting i mages were obtained in the horizontal long axis, vertical long axis and short axis. The patient was then hooked up to the EKG machine and given IV Lexisc an infusion over 15 seconds. Immediately after Lexiscan infusion, the patien t was given 30 millicuries of Myoview. Stress images were obtained in the ho rizontal long axis, vertical long axis and short axis. RESULTS 1. The res ting EKG demonstrated normal sinus rhythm with some nonspecific ST and T wave changes. 2. There were no EKG changes and no symptoms during Lexiscan infusio n. 3. The patient had some mildly decreased perfusion in the septum and ant erior septum in both stress and rest. It represented a fixed defect. 4. There were normal left ventricular size and function with an ejection fraction of 54%. CONCLUSION: The patient has a small fixed defect in the septum and anterior septum. There is no reversible defect. There is no evidence of is chemia. There are normal left ventricular size and function with an ejection fraction of 54%. Job #: [id number] Signature Date Dictated By: LATASHA JOVEL MD Transcribed By: SMEDS on 10/25/17 <Electronically signed by LATASHA JOVEL MD><< Signature on File>>10/27/17 1121 COPY TO:
--- OUTSIDE RECORDS SUMMARY | 2019-12-13 03:56 | XMS REPORT | Continuity of Care Document ---
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 Condition 08/13/2014 [facility] Medications No Data Provided for This Section Allergies, Adverse Reactions, Alerts No Known Medication Allergies Immunizations No Data Provided for This Section Results No Data Provided for This Section Pathology Reports No Data Provided for This Section Diagnostic Reports No Data Provided for This Section Consultation Notes No Data Provided for This Section Discharge Summaries No Data Provided for This Section History and Physicals No Data Provided for This Section Vital Signs Vital Sign Value Date Comments Source Weight 114.4 08/13/2014 [facility] Height 57 0 08/13/2014 [facility] Temperature Oral (F) 97.3 F 08/13/2014 [facility] Heart Rate 61 08/13/2014 [facility] Systolic (mm Hg) 113 08/13/2014 [facility] Diastolic (mm Hg) 78 08/13/2014 [facility] Weight 110 07/24/2014 [facility] Height 57 0 07/24/2014 [facility] Systolic (mm Hg) 121 07/24/2014 [facility] Diastolic (mm Hg) 68 07/24/2014 [facility] Heart Rate 61 07/24/2014 [facility] Temperature Oral (F) 97.9 F 07/24/2014 [facility] Encounters Location Location Details Encounter Type Encounter Number Reason For Visit Attending Provider ADM Date DC Date Status Source [facility] [place] [id number] Davey Roberto MD 07/24/2014 07/24/2014 [facility] [place] [id number] Davey Roberto MD 08/13/2014 08/13/2014 [facility] Procedures No Data Provided for This Section Assessment and Plan No Data Provided for This Section Plan of Care No Data Provided for This Section Social History No Data Provided for This Section Family History No Data Provided for This Section Advance Directives No Data Provided for This Section Functional Status No Data Provided for This Section
--- OUTSIDE RECORDS SUMMARY | 2019-12-13 03:56 | XMS REPORT | Continuity of Care Document ---
Author Author [facility] Organization [facility] Address Unknown Phone Unavailable Care Team Providers Care Rooter Operator Name Role Phone MD Felisa, Davey PP Unavailable Insurance Providers Payer name Policy type / Coverage type Policy ID Covered green party ID Policy [facility] Encounters Encounter Performer Location Date Office Visit Davey Roberto MD [facility] [place] Jul 102014 Problems Problem Effective Dates Problem Status SUBDURAL [...]
--- NOTE | 2019-12-13 05:02 | Emergency Department Note ---
History of Present Illnes History of Present Illness Chief Complaint: General Medicine Complaints History of Present Illness This is a 79 year old female presents with complaint of left lateral breast pain for one week's takes it waxes and wanes. Denies chest pain denies shortness of breath denies radiation of pain.. Historian: Patient, Family Member Arrival Mode: Car Onset (how long ago): day(s) (7) Location: left lateral breast Quality: pain Radiation: non-radiation Severity: mild Onset quality: gradual Duration (how long): day(s) (7) Timing of current episode: constant Progression: waxing and waning Context: recent illness Relieving factors: none Exacerbating factors: none Associated symptoms: denies other symptoms Past Medical/Family History Physician Review I have reviewed the patient's past medical and family history. Any updates have been documented here. Past Medical History Recent Fever: No Clinical Suspicion of Infectio: No New/Unexplained Change in Ment: No Other Medical History: HEART PALIPITATIONS, Other Surgery: KIDNEY STONE SURGERY, ABLATION Social History Smoking Cessation: Never Smoker Counseling Performed: No Alcohol Use: None Any Illegal Drug Use: No TB Exposure/Symptoms: No Physically hurt or threatened: No Other Last Tetanus: UNKOWN Is patient up to date on immun: Yes Last Flu: UP TO DATE Last Pneumovax: UP TO DATE Review of Systems Review of Systems Constitutional: no symptoms EENTM: no symptoms Cardiovascular: no symptoms Respiratory: no symptoms Gastrointestinal: no symptoms Genitourinary: no symptoms Musculoskeletal: no symptoms Neurological: no symptoms Psychological: no symptoms Endocrine: no symptoms Hematological/Lymphatic: no symptoms Review of other systems All other systems reviewed and negative. Physical Exam Related Data Allergies: Coded Allergies: No Known Drug Allergies (Verified Allergy, Mild, 07/17/10) Triage Vital Signs Vital Signs Date Time Temp Pulse Resp B/P (MAP) Pulse Ox O2 Delivery O2 Flow Rate FiO2 12/13/19 04:35 97.5 80 16 171/87 100 Vital signs reviewed: Yes Physical Exam CONSTITUTIONAL Constitutional: well-developed, well-nourished HENT HENT: normocephalic, atraumatic, oropharynx clear/moist, nose normal HENT L/R: left ext ear normal, right ext ear normal EYES Eyes: PERRL, conjunctivae normal NECK Neck: ROM normal PULMONARY Pulmonary: effort normal, breath sounds normal CARDIOVASCULAR Cardiovascular: regular rhythm, heart sounds normal, capillary refill normal, normal rate GASTROINTESTINAL Abdominal: soft, nontender, bowel sounds normal GENITOURINARY Genitourinary: exam deferred SKIN Skin: warm, dry MUSCULOSKELETAL Musculoskeletal: ROM normal NEUROLOGICAL Neurological: alert, oriented x 3, no gross motor or sensory deficits PSYCHOLOGICAL Psychological: mood/affect normal, judgement normal Exam - additional comments Left breast exam reveals a lump about 4 x 4 centimeters in the left lower aspect of her left breast. lump slightly tender to palpation. Upon palpation of this area patient states that his exact pain she has been having for the last 7 days. Critical Care Time Subsequent provider I assumed direction of critical care for this patient from another provider of my specialty. Assessment & Plan Assessment & Plan Final Impression: (1) UNSPECIFIED LUMP IN THE LEFT BREAST, LOWER OUTER QUADRANT Assessment & Plan Patient with a lump in left outer lateral breast. Patient discharged home instructed to follow-up and get a mammogram. Patient reports she has appointment with her primary care doctor today and will address the mammogram with him. Depart Disposition: HOME, SELF-CARE Last Vital Signs Date Time Temp Pulse Resp B/P (MAP) Pulse Ox O2 Delivery O2 Flow Rate FiO2 12/13/19 04:35 97.5 80 16 171/87 100 Home Meds Reported Medications Azithromycin (Z-BERNIE) 250 Mg Tablet, 250 MG PO DAILY, TAB 05/23/16 Ranolazine (RANEXA) 500 Mg Tabsr, 1000 MG PO BID, #60 TAB 04/01/16 Clopidogrel Bisulfate (CLOPIDOGREL) 75 Mg Tablet, 75 MG PO DAILY, #30 TAB 04/01/16 Colchicine (COLCRYS) 0.6 Mg Tablet, 0.6 MG PO DAILY, #30 TAB 04/01/16 Citalopram Hydrobromide (CITALOPRAM HBR) 10 Mg Tablet, 10 MG PO DAILY 04/01/16 Atorvastatin Calcium (ATORVASTATIN CALCIUM) 20 Mg Tablet, 20 MG PO 2100, TAB 04/01/16 Famotidine (FAMOTIDINE) 20 Mg Tab, 20 MG PO BID, #30 TAB 04/01/16 Sotalol Hcl (Betapace) 80 Mg Tablet, 80 MG PO BID 08/18/11 Losartan/Hydrochlorothiazide (Hyzaar 100-25 Tablet) 1 Each Tablet 08/18/11 Alendronate Sodium (Fosamax) 70 Mg Tablet, 70 MG PO Weekly 08/18/11 RODOLFO VIRK MD Dec 13, 2019 05:02
== END 2019-12-13 04:55 | disposition home or self-care (01) ==
LOC: ER 03:53
DX: N63.23 Unspecified lump in the left breast, lower outer quadrant (principal)
CPT/HCPCS: 99282

== ENCOUNTER 2020-02-01 20:42 | Emergency (ER) | payer MEDICARE ==
[~2020-02-01] VITALS: Ht 149.9 cm; Wt 52.6 kg
[2020-02-01 21:09] LABS: BASOPHILS % 0.4 % (0.0-1.0); EOSINOPHILS % 0.3 % (0.0-6.0); HEMATOCRIT 43.3 % (34.2-44.1); HEMOGLOBIN 14.6 g/dL (12.0-16.0); LYMPHOCYTES # (AUTO) 1.5 (1.0-3.2); LYMPHOCYTES % 16.3 % (18.0-39.1); MEAN CORPUSCULAR HEMOGLOBIN 28.5 pg (28-32); MEAN CORPUSCULAR HGB CONC 33.7 g/dL (31-35); MEAN CORPUSCULAR VOLUME 84.6 fL (81-99); MONOCYTES # (AUTO) 0.8 (0.2-0.8); MONOCYTES % 8.4 % (4.4-11.3); NEUTROPHILS # (AUTO) 6.9 (2.1-6.9); NEUTROPHILS % 74.5 % (38.7-80.0); PLATELET COUNT 395 x10e3/uL (140-360); RED BLOOD COUNT 5.12 x10e6/uL (3.6-5.1); RED CELL DISTRIBUTION WIDTH 12.4 % (11.7-14.4)
--- NOTE | 2020-02-01 21:19 | Emergency Department Note ---
History of Present Illnes History of Present Illness Chief Complaint: General Medicine Complaints History of Present Illness This is a 79 year old female arrives to the ED for generalized weakness for 4 days, denies any cough fever, chest pain or any specific symptoms. Chief Complaint Comment patient has been feeling weak for the past 4 days, no chest pain, shortness of breath, or fever. has not been exposed to anyone with covid. labs are being drawn at this moment, dr landa is in triage. 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 Any updates have been documented here. Past Medical History Recent Fever: No Clinical Suspicion of Infectio: No New/Unexplained Change in Ment: No Other Medical History: HEART PALIPITATIONS, Other Surgery: KIDNEY STONE SURGERY, ABLATION Social History Smoking Cessation: Never Smoker Counseling Performed: No Alcohol Use: None Any Illegal Drug Use: No Other Last Tetanus: UNKOWN Review of Systems Review of Systems Constitutional: Reports as per HPI, Reports weakness EENTM: Reports no symptoms Cardiovascular: Reports no symptoms Respiratory: Reports no symptoms Gastrointestinal: Reports no symptoms Genitourinary: Reports no symptoms Musculoskeletal: Reports no symptoms Integumentary: Reports no symptoms Neurological: Reports no symptoms Psychological: Reports no symptoms Endocrine: Reports no symptoms Hematological/Lymphatic: Reports no symptoms Physical Exam Related Data Allergies: Coded Allergies: No Known Drug Allergies (Verified Allergy, Mild, 07/17/10) Triage Vital Signs Vital Signs Date Time Temp Pulse Resp B/P (MAP) Pulse Ox O2 Delivery O2 Flow Rate FiO2 02/01/20 20:47 98.6 76 18 172/76 99 Room Air Vital signs reviewed: Yes Physical Exam CONSTITUTIONAL Constitutional: Present well-developed, Present well-nourished HENT HENT: Present normocephalic, Present atraumatic, Present oropharynx clear/moist, Present nose normal HENT L/R: Present left ext ear normal, Present right ext ear normal EYES Eyes: Reports PERRL, Reports conjunctivae normal NECK Neck: Present ROM normal PULMONARY Pulmonary: Present effort normal, Present breath sounds normal CARDIOVASCULAR Cardiovascular: Present regular rhythm, Present heart sounds normal, Present capillary refill normal, Present normal rate GASTROINTESTINAL Abdominal: Present soft, Present nontender, Present bowel sounds normal GENITOURINARY Genitourinary: Present exam deferred SKIN Skin: Present warm, Present dry MUSCULOSKELETAL Musculoskeletal: Present ROM normal NEUROLOGICAL Neurological: Present alert, Present oriented x 3, Present no gross motor or sensory deficits PSYCHOLOGICAL Psychological: Present mood/affect normal, Present judgement normal Results Laboratory Lab results reviewed: Yes Laboratory comments Laboratory Tests Test 02/01/20 20:50 White Blood Count 9.31 x10e3/uL (4.8-10.8) Red Blood Count 5.12 x10e6/uL (3.6-5.1) Hemoglobin 14.6 g/dL (12.0-16.0) Hematocrit 43.3 % (34.2-44.1) Mean Corpuscular Volume 84.6 fL (81-99) Mean Corpuscular Hemoglobin 28.5 pg (28-32) Mean Corpuscular Hemoglobin Concent 33.7 g/dL (31-35) Red Cell Distribution Width 12.4 % (11.7-14.4) Platelet Count 395 x10e3/uL (140-360) Neutrophils (%) (Auto) 74.5 % (38.7-80.0) Lymphocytes (%) (Auto) 16.3 % (18.0-39.1) Monocytes (%) (Auto) 8.4 % (4.4-11.3) Eosinophils (%) (Auto) 0.3 % (0.0-6.0) Basophils (%) (Auto) 0.4 % (0.0-1.0) Neutrophils # (Auto) 6.9 (2.1-6.9) Lymphocytes # (Auto) 1.5 (1.0-3.2) Monocytes # (Auto) 0.8 (0.2-0.8) Eosinophils # (Auto) 0.0 (0.0-0.4) Basophils # (Auto) 0.0 (0.0-0.1) Absolute Immature Granulocyte (auto 0.01 x10e3/uL (0-0.1) Urine Color [place] (YELLOW) Urine Clarity Sl cloudy (CLEAR) Urine pH 7 (5 - 7) Urine Specific [place] 1.025 (1.010-1.025) Urine Protein Negative (NEGATIVE) Urine Glucose (UA) 1+ (NEGATIVE) Urine Ketones Negative (NEGATIVE) Urine Blood Small (NEGATIVE) Urine Nitrite Negative (NEGATIVE) Urine Bilirubin Negative (NEGATIVE) Urine Urobilinogen 0.2 mg/dL (0.2 - 1) Urine Leukocyte Esterase Small (NEGATIVE) Urine RBC 6-10 /HPF (0-5) Urine WBC 11-20 /HPF (0-5) Urine Epithelial Cells Rare /LPF (NONE) Urine Bacteria Few /HPF (NONE) Sodium Level 137 mmol/L (136-145) Potassium Level 3.8 mmol/L (3.5-5.1) Chloride Level 101 mmol/L (98-107) Carbon Dioxide Level 25 mmol/L (22-29) Anion Gap 14.8 mmol/L (8-16) Blood Urea Nitrogen 12 mg/dL (7-26) Creatinine 0.83 mg/dL (0.57-1.11) Estimat Glomerular Filtration Rate > 60 ML/MIN (60-) BUN/Creatinine Ratio 14 (6-25) Glucose Level 140 mg/dL (74-118) Calcium Level 9.9 mg/dL (8.4-10.2) Total Bilirubin 0.7 mg/dL (0.2-1.2) Aspartate Amino Transf (AST/SGOT) 37 IU/L (5-34) Alanine Aminotransferase (ALT/SGPT) 12 IU/L (0-55) Alkaline Phosphatase 103 IU/L (40-150) Creatine Kinase 74 IU/L (29-168) Creatine Kinase MB 1.60 ng/mL (0-5.0) Troponin I 0.003 ng/mL (0-0.300) Total Protein 8.0 g/dL (6.5-8.1) Albumin 4.4 g/dL (3.5-5.0) Globulin 3.6 g/dL (2.3-3.5) Albumin/Globulin Ratio 1.2 (0.8-2.0) Assessment & Plan Medical Decision Making MDM 79-year-old female arrives to ED with complaints generalized malaise and weakness. Labwork unremarkable. Noted to have a urinary tract infection, patient with no neuro deficits discharged home with Bactrim return precautions given. Assessment & Plan Final Impression: (1) Urinary tract infection Depart Disposition: HOME, SELF-CARE Last Vital Signs Date Time Temp Pulse Resp B/P (MAP) Pulse Ox O2 Delivery O2 Flow Rate FiO2 02/01/20 20:47 98.6 76 18 172/76 99 Room Air Home Meds Active Scripts Sulfamethoxazole/Trimethoprim (BACTRIM DS TABLET) 1 Each Tablet, 1 TAB PO BID, #20 TAB 0 Refills Prov:LITZY LANDA DO 02/01/20 Reported Medications Azithromycin (Z-BERNIE) 250 Mg Tablet, 250 MG PO DAILY, TAB 05/23/16 Ranolazine (RANEXA) 500 Mg Tabsr, 1000 MG PO BID, #60 TAB 04/01/16 Clopidogrel Bisulfate (CLOPIDOGREL) 75 Mg Tablet, 75 MG PO DAILY, #30 TAB 04/01/16 Colchicine (COLCRYS) 0.6 Mg Tablet, 0.6 MG PO DAILY, #30 TAB 04/01/16 Citalopram Hydrobromide (CITALOPRAM HBR) 10 Mg Tablet, 10 MG PO DAILY 04/01/16 Atorvastatin Calcium (ATORVASTATIN CALCIUM) 20 Mg Tablet, 20 MG PO 2100, TAB 04/01/16 Famotidine (FAMOTIDINE) 20 Mg Tab, 20 MG PO BID, #30 TAB 04/01/16 Sotalol Hcl (Betapace) 80 Mg Tablet, 80 MG PO BID 08/18/11 Losartan/Hydrochlorothiazide (Hyzaar 100-25 Tablet) 1 Each Tablet 08/18/11 Alendronate Sodium (Fosamax) 70 Mg Tablet, 70 MG PO Weekly 08/18/11 LITZY LANDA DO Feb 01, 2020 21:19
[2020-02-01 21:23] LABS: COLOR,URINE PINK (YELLOW)
[2020-02-01 21:24] LABS: CLARITY,URINE SL CLOUDY (CLEAR); KETONES,URINE NEGATIVE (NEGATIVE); LEUKOCYTE ESTERASE ,URINE SMALL (NEGATIVE); NITRITE,URINE NEGATIVE (NEGATIVE); PROTEIN,URINE DIPSTICK NEGATIVE (NEGATIVE)
[2020-02-01 21:25] LABS: URINE UROBILINOGEN 0.2 mg/dL (0.2 - 1)
[2020-02-01 21:27] LABS: BILIRUBIN,URINE NEGATIVE (NEGATIVE)
[2020-02-01 21:28] LABS: ALANINE AMINOTRANSFERASE 12 IU/L (0-55); ALBUMIN 4.4 g/dL (3.5-5.0); ALBUMIN/GLOBULIN RATIO 1.2 (0.8-2.0); ALKALINE PHOSPHATASE 103 IU/L (40-150); ANION GAP 14.8 mmol/L (8-16); BLOOD UREA NITROGEN 12 mg/dL (7-26); BUN/CREATININE RATIO 14 (6-25); CALCIUM 9.9 mg/dL (8.4-10.2); CARBON DIOXIDE 25 mmol/L (22-29); CHLORIDE 101 mmol/L (98-107); CREATINE KINASE 74 IU/L (29-168); CREATININE, SERUM 0.83 mg/dL (0.57-1.11); EST GLOMERULAR FILTRATION RATE > 60 ML/MIN (60-); GLUCOSE 140 mg/dL (74-118); POTASSIUM 3.8 mmol/L (3.5-5.1); SODIUM 137 mmol/L (136-145)
[2020-02-01 21:34] LABS: BACTERIA,URINE FEW /HPF; EPITHELIAL CELLS,URINE RARE /LPF
[2020-02-01] MEDS ORDERED: BACTRIM DS TAB1 EACH PO (21:40)
[2020-02-01 21:41] VITALS: BP 156/89
== END 2020-02-01 21:45 | disposition home or self-care (01) ==
LOC: ER 20:55
DX: N39.0 Urinary tract infection, site not specified (principal); R53.1 Weakness
CPT/HCPCS: 36415; 80053; 81001; 82550; 82553; 84484; 85025; 99283

== ENCOUNTER 2021-09-20 22:28 | Emergency (ER) | payer MEDICARE ==
[~2021-09-20] VITALS: Ht 149.9 cm; Wt 52.6 kg
[~2021-09-20 22:28] MED LIST changes: +BACTRIM DS TAB1 EACH PO
[2021-09-20] MEDS ORDERED: ONDANSETRON HCL INJ 2MG/ML 2ML 2 MG/ML VIAL IV STA (22:46)
[2021-09-20 22:59] LABS: BASOPHILS # (AUTO) 0.1 (0.0-0.1); BASOPHILS % 0.7 % (0.0-1.0); EOSINOPHILS # (AUTO) 0.1 (0.0-0.4); HEMATOCRIT 32.6 % (34.2-44.1); HEMOGLOBIN 10.3 g/dL (12.0-16.0); LYMPHOCYTES # (AUTO) 1.7 (1.0-3.2); LYMPHOCYTES % 16.1 % (18.0-39.1); MEAN CORPUSCULAR HEMOGLOBIN 25.2 pg (28-32); MEAN CORPUSCULAR HGB CONC 31.6 g/dL (31-35); MEAN CORPUSCULAR VOLUME 79.9 fL (81-99); MONOCYTES # (AUTO) 1.2 (0.2-0.8); MONOCYTES % 11.6 % (4.4-11.3); NEUTROPHILS # (AUTO) 7.3 (2.1-6.9); NEUTROPHILS % 70.3 % (38.7-80.0); PLATELET COUNT 400 x10e3/uL (140-360); RED BLOOD COUNT 4.08 x10e6/uL (3.6-5.1); RED CELL DISTRIBUTION WIDTH 14.6 % (11.7-14.4)
[2021-09-20 23:06] LABS: CLARITY,URINE SL CLOUDY (CLEAR); COLOR,URINE YELLOW (YELLOW); KETONES,URINE NEGATIVE (NEGATIVE); LEUKOCYTE ESTERASE ,URINE TRACE (NEGATIVE); NITRITE,URINE NEGATIVE (NEGATIVE); PROTEIN,URINE DIPSTICK NEGATIVE (NEGATIVE); URINE UROBILINOGEN 0.2 mg/dL (0.2 - 1)
[2021-09-20 23:10] LABS: BACTERIA,URINE FEW /HPF; EPITHELIAL CELLS,URINE FEW /LPF; RBC,URINE 0-5 /HPF (0-5)
[2021-09-20 23:16] LABS: AMYLASE 111 U/L (25-125); LIPASE 97 U/L (8-78)
[2021-09-20 23:21] LABS: ALBUMIN 3.6 g/dL (3.5-5.0); ALBUMIN/GLOBULIN RATIO 0.9 (0.8-2.0); ALKALINE PHOSPHATASE 77 IU/L (40-150); ANION GAP 13.6 mmol/L (8-16); BLOOD UREA NITROGEN 30 mg/dL (7-26); BUN/CREATININE RATIO 27 (6-25); CALCIUM 10.6 mg/dL (8.4-10.2); CARBON DIOXIDE 26 mmol/L (22-29); CHLORIDE 105 mmol/L (98-107); CREATINE KINASE 67 IU/L (29-168); CREATININE, SERUM 1.12 mg/dL (0.57-1.11); EST GLOMERULAR FILTRATION RATE 47 ML/MIN (60-); GLUCOSE 161 mg/dL (74-118); POTASSIUM 3.6 mmol/L (3.5-5.1); SODIUM 141 mmol/L (136-145)
[2021-09-20 23:23] LABS: ALANINE AMINOTRANSFERASE < 6 IU/L (0-55)
[2021-09-20] MEDS ORDERED: SODIUM CHLORIDE 0.9% 1000ML 500 ML IV ONE (23:45)
[2021-09-20] MEDS ORDERED: SODIUM CHLORIDE 0.9% 500ML 500 ML ONE (23:57)
[2021-09-21] MEDS ORDERED: IOPAMIDOL 370 MG/ML 200 ML INFUS..BTL INJ ONE (02:43)
[2021-09-21] MEDS ORDERED: SODIUM CHLORIDE 0.9% 50ML 50 ML ONE (02:43)
[2021-09-21 04:17] VITALS: BP 134/57
== END 2021-09-21 04:18 | disposition home or self-care (01) ==
LOC: ER 22:37
DX: R07.89 Other chest pain (principal); R10.10 Upper abdominal pain, unspecified; K29.60 Other gastritis without bleeding; K44.9 Diaphragmatic hernia without obstruction or gangrene; I10 Essential (primary) hypertension; R16.0 Hepatomegaly, not elsewhere classified; R94.31 Abnormal electrocardiogram [ECG] [EKG]; Z87.442 Personal history of urinary calculi
CPT/HCPCS: 36415; 71045; 74177; 76705; 80053; 81001; 82150; 82550; 82553; 83690; 84484; 85025; 93005; 99284; C9113; J2405; J7040; Q9967

== ENCOUNTER 2022-04-14 09:58 | Emergency (ER) | payer MEDICARE, OTHER ==
[~2022-04-14] VITALS: Ht 149.9 cm; Wt 52.6 kg
[2022-04-14 10:57] VITALS: BP 137/76
[2022-04-14] MEDS ORDERED: ONDANSETRON ODT4 MG PO (10:58)
[2022-04-14] MEDS ORDERED: ONDANSETRON HCL 4 MG ORAL DISINTEGRATING TAB PO ONE ×2 (11:00)
== END 2022-04-14 11:15 | disposition home or self-care (01) ==
LOC: ER 10:55
DX: R11.0 Nausea (principal); I10 Essential (primary) hypertension; I48.91 Unspecified atrial fibrillation; Z87.442 Personal history of urinary calculi
CPT/HCPCS: 99282

== ENCOUNTER 2022-10-24 10:42 | Inpatient (IN) | payer MEDICARE ==
[~2022-10-24] VITALS: Ht 149.9 cm; Wt 52.6 kg
[~2022-10-24 10:42] MED LIST changes: +ONDANSETRON ODT4 MG PO
[2022-10-24] MEDS ORDERED: SODIUM CHLORIDE 0.9% 250ML 250 ML IV ONE (11:15)
[2022-10-24] MEDS ORDERED: SODIUM CHLORIDE FLUSH 10 ML SYR IV PRN (11:15)
[2022-10-24 12:25] LABS: BASOPHILS % 0.2 % (0.0-1.0); EOSINOPHILS % 0.2 % (0.0-6.0); HEMATOCRIT 37.1 % (34.2-44.1); HEMOGLOBIN 12.6 g/dL (12.0-16.0); LYMPHOCYTES # (AUTO) 1.3 (1.0-3.2); LYMPHOCYTES % 10.7 % (18.0-39.1); MEAN CORPUSCULAR HEMOGLOBIN 28.8 pg (28-32); MEAN CORPUSCULAR VOLUME 84.7 fL (81-99); MONOCYTES # (AUTO) 0.6 (0.2-0.8); NEUTROPHILS # (AUTO) 10.3 (2.1-6.9); NEUTROPHILS % 83.7 % (38.7-80.0); PLATELET COUNT 382 x10e3/uL (140-360); RED BLOOD COUNT 4.38 x10e6/uL (3.6-5.1); RED CELL DISTRIBUTION WIDTH 13.1 % (11.7-14.4)
[2022-10-24 12:46] LABS: PARTIAL THROMBOPLASTIN TIME 29.1 seconds (23.8-35.5); PROTHROMBIN TIME 13.7 seconds (11.9-14.5)
[2022-10-24 12:47] LABS: ALBUMIN 4.1 g/dL (3.5-5.0); ALBUMIN/GLOBULIN RATIO 1.2 (0.8-2.0); ANION GAP 16.4 mmol/L (8-16); CALCIUM 10.1 mg/dL (8.4-10.2); CREATININE, SERUM 0.84 mg/dL (0.57-1.11); POTASSIUM 3.4 mmol/L (3.5-5.1)
[2022-10-24] MEDS ORDERED: ONDANSETRON HCL INJ 2MG/ML 2ML 2 MG/ML VIAL IV PRN (14:00)
[2022-10-24] MEDS ORDERED: METOPROLOL TARTRATE INJ 1 MG/ML VIAL IV PRN (16:00)
[2022-10-24] MEDS: SODIUM CHLORIDE 0.9% 1000ML 1,000 ML IV SCH (16:08)
[2022-10-24] MEDS ORDERED: SODIUM CHLORIDE 0.9% 100 ML ONE (16:16)
[2022-10-24] MEDS ORDERED: IOPAMIDOL 370 MG/ML 100 ML INFUS..BTL INJ ONE (16:16)
[2022-10-24 16:28] LABS: BASOPHILS % 0.3 % (0.0-1.0); EOSINOPHILS % 0.2 % (0.0-6.0); HEMATOCRIT 31.6 % (34.2-44.1); HEMOGLOBIN 10.6 g/dL (12.0-16.0); LYMPHOCYTES # (AUTO) 1.4 (1.0-3.2); LYMPHOCYTES % 10.6 % (18.0-39.1); MEAN CORPUSCULAR HEMOGLOBIN 28.9 pg (28-32); MEAN CORPUSCULAR HGB CONC 33.5 g/dL (31-35); MEAN CORPUSCULAR VOLUME 86.1 fL (81-99); MONOCYTES # (AUTO) 0.8 (0.2-0.8); MONOCYTES % 6.4 % (4.4-11.3); NEUTROPHILS # (AUTO) 10.7 (2.1-6.9); RED BLOOD COUNT 3.67 x10e6/uL (3.6-5.1); RED CELL DISTRIBUTION WIDTH 13.2 % (11.7-14.4)
[2022-10-24 16:41] LABS: PLATELET COUNT 336 x10e3/uL (140-360)
[2022-10-24] MEDS ORDERED: PEG (High)/E-LYTE SOLN 4,000 ML BTL PO ONE ×2 (18:00→22:00)
[2022-10-24 21:45] VITALS: BP 103/55; PULSE 84; RESP 18; TEMP 97.8; O2SAT 100
[2022-10-24 22:33] VITALS: BP 103/55; PULSE 84; RESP 18; TEMP 97.8; O2SAT 100
[2022-10-24] MEDS ORDERED: SERTRALINE HCL50 MG PO (22:46)
[2022-10-24] MEDS ORDERED: BUSPIRONE HCL10 MG PO (22:46)
[2022-10-24] MEDS ORDERED: MELOXICAM7.5 MG PO (22:46)
[2022-10-24] MEDS ORDERED: AMLODIPINE BESY10 MG PO (22:46)
[2022-10-25 00:25] LABS: BASOPHILS # (AUTO) 0.1 (0.0-0.1); BASOPHILS % 0.4 % (0.0-1.0); EOSINOPHILS % 0.1 % (0.0-6.0); HEMATOCRIT 28.3 % (34.2-44.1); HEMOGLOBIN 9.6 g/dL (12.0-16.0); LYMPHOCYTES # (AUTO) 1.8 (1.0-3.2); LYMPHOCYTES % 10.8 % (18.0-39.1); MEAN CORPUSCULAR HEMOGLOBIN 28.7 pg (28-32); MEAN CORPUSCULAR HGB CONC 33.9 g/dL (31-35); MEAN CORPUSCULAR VOLUME 84.7 fL (81-99); MONOCYTES # (AUTO) 1.4 (0.2-0.8); MONOCYTES % 8.2 % (4.4-11.3); NEUTROPHILS # (AUTO) 13.3 (2.1-6.9); NEUTROPHILS % 80.1 % (38.7-80.0); PLATELET COUNT 275 x10e3/uL (140-360); RED BLOOD COUNT 3.34 x10e6/uL (3.6-5.1); RED CELL DISTRIBUTION WIDTH 13.2 % (11.7-14.4)
[2022-10-25] MEDS: SODIUM CHLORIDE 0.9% 1000ML 1,000 ML IV SCH ×4 (00:44→21:37)
[2022-10-25 05:12] LABS: BASOPHILS # (AUTO) 0.1 (0.0-0.1); BASOPHILS % 0.3 % (0.0-1.0); EOSINOPHILS % 0.1 % (0.0-6.0); HEMATOCRIT 26.2 % (34.2-44.1); HEMOGLOBIN 8.8 g/dL (12.0-16.0); LYMPHOCYTES # (AUTO) 1.3 (1.0-3.2); LYMPHOCYTES % 9.2 % (18.0-39.1); MEAN CORPUSCULAR HEMOGLOBIN 28.9 pg (28-32); MEAN CORPUSCULAR HGB CONC 33.6 g/dL (31-35); MEAN CORPUSCULAR VOLUME 85.9 fL (81-99); MONOCYTES # (AUTO) 1.2 (0.2-0.8); MONOCYTES % 8.6 % (4.4-11.3); NEUTROPHILS # (AUTO) 11.7 (2.1-6.9); NEUTROPHILS % 81.5 % (38.7-80.0); PLATELET COUNT 262 x10e3/uL (140-360); RED BLOOD COUNT 3.05 x10e6/uL (3.6-5.1); RED CELL DISTRIBUTION WIDTH 13.4 % (11.7-14.4)
[2022-10-25 05:31] LABS: ALBUMIN 3.4 g/dL (3.5-5.0); ALBUMIN/GLOBULIN RATIO 1.4 (0.8-2.0); CREATININE, SERUM 0.71 mg/dL (0.57-1.11)
[2022-10-25 07:45] VITALS: BP 137/71; PULSE 108; RESP 17; TEMP 97.6; O2SAT 98
[2022-10-25 08:00] VITALS: BP 137/71; PULSE 108; RESP 17; TEMP 97.6; O2SAT 98
[2022-10-25] MEDS ORDERED: SOD PHOSPHATE/SOD BIPHOSPHATE ENEMA 132 ML BTL PR ONE (09:30)
[2022-10-25 11:38] LABS: % IRON SATURATION 9 % (15-50); IRON 26 ug/dL (50-170); TOTAL IRON BINDING CAPACITY 283 ug/dL (261-478); TRANSFERRIN 202 mg/dL (180-382)
[2022-10-25 11:39] VITALS: BP 98/58; PULSE 90; RESP 18; TEMP 97.9; O2SAT 100
[2022-10-25] MEDS ORDERED: POTASSIUM CHLORIDE 20MEQ/100ML 100 ML IV ONE (12:00)
[2022-10-25 12:03] LABS: HEMOGLOBIN 7.6 g/dL (12.0-16.0)
[2022-10-25 12:05] LABS: HEMATOCRIT 22.7 % (34.2-44.1)
[2022-10-25] MEDS ORDERED: SODIUM CHLORIDE 0.9% 250ML 250 ML IV ONE ×2 (12:30→19:00)
[2022-10-25] MEDS ORDERED: POVIDONE IODINE 0.05% 0.05 % ML PO ONE (12:46)
[2022-10-25] MEDS ORDERED: PROPOFOL IV EMULSION 10 MG/ML 20 ML VIAL ONE (12:46)
[2022-10-25] MEDS ORDERED: PHENYLEPHRINE HCL 1% 10 MG/ML VIAL ONE (12:46)
[2022-10-25] MEDS ORDERED: LIDOCAINE HCL 2% LOCAL INJ 5 ML SDV VIAL INJ ONE (12:46)
[2022-10-25 15:40] VITALS: BP 114/61; PULSE 78; RESP 21; TEMP 97.3; O2SAT 100
[2022-10-25] MEDS ORDERED: SODIUM CHLORIDE 0.9% 250ML 250 ML ONE (18:11)
[2022-10-25 18:13] LABS: HEMATOCRIT 19.2 % (34.2-44.1); HEMOGLOBIN 6.3 g/dL (12.0-16.0)
[2022-10-25 20:00] VITALS: BP 91/56; PULSE 69; RESP 20; TEMP 97.4; O2SAT 99
[2022-10-26] VITALS (7 sets, daily range): BP systolic 91–126; BP diastolic 56–74; PULSE 69–102; RESP 16–21; TEMP 97.4–98.1; O2SAT 99–100
[2022-10-26 05:39] LABS: BASOPHILS % 0.4 % (0.0-1.0); EOSINOPHILS % 0.3 % (0.0-6.0); HEMATOCRIT 37.9 % (34.2-44.1); HEMOGLOBIN 12.9 g/dL (12.0-16.0); LYMPHOCYTES # (AUTO) 1.5 (1.0-3.2); MEAN CORPUSCULAR HEMOGLOBIN 29.3 pg (28-32); MEAN CORPUSCULAR VOLUME 86.1 fL (81-99); MONOCYTES # (AUTO) 0.9 (0.2-0.8); MONOCYTES % 8.8 % (4.4-11.3); NEUTROPHILS # (AUTO) 7.9 (2.1-6.9); NEUTROPHILS % 76.2 % (38.7-80.0); PLATELET COUNT 175 x10e3/uL (140-360); RED CELL DISTRIBUTION WIDTH 13.3 % (11.7-14.4)
[2022-10-26 06:07] LABS: CALCIUM 8.7 mg/dL (8.4-10.2); CREATININE, SERUM 0.64 mg/dL (0.57-1.11)
[2022-10-26] MEDS ORDERED: IOPAMIDOL 370 MG/ML 100 ML INFUS..BTL INJ ONE ×2 (08:18→11:22)
[2022-10-26 08:47] LABS: BASOPHILS % 0.2 % (0.0-1.0); EOSINOPHILS % 0.1 % (0.0-6.0); HEMATOCRIT 32.1 % (34.2-44.1); LYMPHOCYTES # (AUTO) 0.9 (1.0-3.2); LYMPHOCYTES % 6.9 % (18.0-39.1); MEAN CORPUSCULAR HEMOGLOBIN 29.3 pg (28-32); MEAN CORPUSCULAR HGB CONC 34.3 g/dL (31-35); MEAN CORPUSCULAR VOLUME 85.6 fL (81-99); MONOCYTES % 7.7 % (4.4-11.3); NEUTROPHILS # (AUTO) 10.6 (2.1-6.9); NEUTROPHILS % 84.8 % (38.7-80.0); PLATELET COUNT 170 x10e3/uL (140-360); RED BLOOD COUNT 3.75 x10e6/uL (3.6-5.1); RED CELL DISTRIBUTION WIDTH 13.3 % (11.7-14.4)
[2022-10-26] MEDS: SODIUM CHLORIDE 0.9% 1000ML 1,000 ML IV SCH ×3 (08:47→22:41)
[2022-10-26] MEDS ORDERED: SODIUM CHLORIDE 0.9% 500ML 1,000 ML ONE (11:22)
[2022-10-26] MEDS ORDERED: SODIUM CHLORIDE 0.9% 1000ML 1,000 ML ONE (11:23)
[2022-10-26] MEDS ORDERED: LIDOCAINE HCL 1% LOCAL INJ 20 ML VIAL ONE (11:31)
[2022-10-26] MEDS ORDERED: FENTANYL CITRATE/PF 100MCG/2 ML INJ ONE (11:33)
[2022-10-26] MEDS ORDERED: MIDAZOLAM HCL 2 MG/2 ML VIAL ONE (11:33)
[2022-10-26] MEDS ORDERED: SODIUM CHLORIDE 0.9% 0 ML ONE (11:40)
[2022-10-26] MEDS ORDERED: PHENYLEPHRINE HCL 1% 10 MG/ML VIAL ONE (11:40)
[2022-10-26 14:25] LABS: HEMATOCRIT 26.7 % (34.2-44.1); HEMOGLOBIN 9.2 g/dL (12.0-16.0)
[2022-10-26 23:12] LABS: HEMOGLOBIN 7.7 g/dL (12.0-16.0)
[2022-10-27] VITALS (7 sets, daily range): BP systolic 91–153; BP diastolic 61–78; PULSE 85–112; RESP 16–18; TEMP 97–98.2; O2SAT 93–100
[2022-10-27] MEDS: SODIUM CHLORIDE 0.9% 1000ML 1,000 ML IV SCH ×3 (06:32→22:08)
[2022-10-27 07:12] LABS: BASOPHILS % 0.4 % (0.0-1.0); EOSINOPHILS # (AUTO) 0.1 (0.0-0.4); EOSINOPHILS % 0.6 % (0.0-6.0); HEMATOCRIT 22.6 % (34.2-44.1); HEMOGLOBIN 7.6 g/dL (12.0-16.0); LYMPHOCYTES # (AUTO) 1.4 (1.0-3.2); LYMPHOCYTES % 17.7 % (18.0-39.1); MEAN CORPUSCULAR HEMOGLOBIN 28.8 pg (28-32); MEAN CORPUSCULAR HGB CONC 33.6 g/dL (31-35); MEAN CORPUSCULAR VOLUME 85.6 fL (81-99); MONOCYTES # (AUTO) 0.7 (0.2-0.8); MONOCYTES % 9.3 % (4.4-11.3); NEUTROPHILS # (AUTO) 5.6 (2.1-6.9); NEUTROPHILS % 71.6 % (38.7-80.0); PLATELET COUNT 190 x10e3/uL (140-360); RED BLOOD COUNT 2.64 x10e6/uL (3.6-5.1); RED CELL DISTRIBUTION WIDTH 13.8 % (11.7-14.4)
[2022-10-27 07:25] LABS: ANION GAP 11.6 mmol/L (8-16); BLOOD UREA NITROGEN < 5 mg/dL (7-26); CALCIUM 7.7 mg/dL (8.4-10.2); CARBON DIOXIDE 23 mmol/L (22-29); CHLORIDE 111 mmol/L (98-107); GLUCOSE 99 mg/dL (74-118); SODIUM 143 mmol/L (136-145)
[2022-10-27 07:31] LABS: BUN/CREATININE RATIO 10 (6-25)
[2022-10-27 07:32] LABS: POTASSIUM 2.6 mmol/L (3.5-5.1)
[2022-10-27] MEDS ORDERED: POTASSIUM CHLORIDE 10MEQ EA PO ONE (11:00)
[2022-10-28 01:16] VITALS: BP 128/70; PULSE 101; RESP 18; TEMP 97.9; O2SAT 100
[2022-10-28 04:50] VITALS: BP 146/77; PULSE 119; RESP 16; TEMP 98.1; O2SAT 100
[2022-10-28] MEDS: SODIUM CHLORIDE 0.9% 1000ML 1,000 ML IV SCH (06:03)
[2022-10-28 06:20] LABS: BASOPHILS % 0.3 % (0.0-1.0); EOSINOPHILS # (AUTO) 0.1 (0.0-0.4); EOSINOPHILS % 0.9 % (0.0-6.0); HEMATOCRIT 22.1 % (34.2-44.1); HEMOGLOBIN 7.4 g/dL (12.0-16.0); LYMPHOCYTES # (AUTO) 1.1 (1.0-3.2); LYMPHOCYTES % 12.3 % (18.0-39.1); MEAN CORPUSCULAR HEMOGLOBIN 28.9 pg (28-32); MEAN CORPUSCULAR HGB CONC 33.5 g/dL (31-35); MEAN CORPUSCULAR VOLUME 86.3 fL (81-99); MONOCYTES # (AUTO) 0.8 (0.2-0.8); MONOCYTES % 9.2 % (4.4-11.3); NEUTROPHILS # (AUTO) 6.8 (2.1-6.9); NEUTROPHILS % 76.9 % (38.7-80.0); PLATELET COUNT 220 x10e3/uL (140-360); RED BLOOD COUNT 2.56 x10e6/uL (3.6-5.1)
[2022-10-28 06:45] LABS: ANION GAP 11.2 mmol/L (8-16); BLOOD UREA NITROGEN < 5 mg/dL (7-26); BUN/CREATININE RATIO 9 (6-25); CARBON DIOXIDE 25 mmol/L (22-29); CHLORIDE 110 mmol/L (98-107); CREATININE, SERUM 0.55 mg/dL (0.57-1.11); GLUCOSE 113 mg/dL (74-118); POTASSIUM 3.2 mmol/L (3.5-5.1); SODIUM 143 mmol/L (136-145)
[2022-10-28 08:00] VITALS: BP 150/74; PULSE 105; RESP 20; TEMP 98.4; O2SAT 100
[2022-10-28 09:46] VITALS: BP 150/74; PULSE 105; RESP 20; TEMP 98.4; O2SAT 100
[2022-10-28] MEDS ORDERED: PANTOPRAZOLE SO40 MG PO (09:47)
[2022-10-28] MEDS ORDERED: POTASSIUM CHLORIDE 20 MEQ TAB CR PO ONE (10:30)
[2022-10-28 10:43] LABS: HEMATOCRIT 22.1 % (34.2-44.1); HEMOGLOBIN 7.5 g/dL (12.0-16.0)
[2022-10-28 11:00] VITALS: BP 120/89; PULSE 117; RESP 18; TEMP 98.7; O2SAT 100
== END 2022-10-28 12:47 | disposition home or self-care (01) | DRG 377 ==
LOC: ER 11:05 → ERHOLD 13:54 → MED/SURG 20:26 → OBSVTOIN 10-25 13:51
PROVIDERS: ADMIT Internal Medicine; ATTEND Internal Medicine
PROC: 0DJD8ZZ Inspection of Lower Intestinal Tract, Via Natural or Artificial Opening Endoscopic (ICD-10-PCS; principal; 2022-10-24)
PROC: 30233N1 Transfusion of Nonautologous Red Blood Cells into Peripheral Vein, Percutaneous Approach (ICD-10-PCS; 2022-10-25)
PROC: 02HV33Z Insertion of Infusion Device into Superior Vena Cava, Percutaneous Approach (ICD-10-PCS; 2022-10-26)
PROC: B4141ZZ Fluoroscopy of Superior Mesenteric Artery using Low Osmolar Contrast (ICD-10-PCS; 2022-10-26)
DX: K57.31 Diverticulosis of large intestine without perforation or abscess with bleeding (principal); R57.1 Hypovolemic shock; D62 Acute posthemorrhagic anemia; I48.20 Chronic atrial fibrillation, unspecified; I25.10 Atherosclerotic heart disease of native coronary artery without angina pectoris; K21.9 Gastro-esophageal reflux disease without esophagitis; K64.8 Other hemorrhoids; C50.919 Malignant neoplasm of unspecified site of unspecified female breast; M19.90 Unspecified osteoarthritis, unspecified site; M85.80 Other specified disorders of bone density and structure, unspecified site; M10.9 Gout, unspecified; C53.9 Malignant neoplasm of cervix uteri, unspecified; E87.6 Hypokalemia; E78.00 Pure hypercholesterolemia, unspecified; I11.9 Hypertensive heart disease without heart failure; K44.9 Diaphragmatic hernia without obstruction or gangrene; M81.0 Age-related osteoporosis without current pathological fracture; Z79.02 Long term (current) use of antithrombotics/antiplatelets; Z95.5 Presence of coronary angioplasty implant and graft
CPT/HCPCS: 36245; 36415; 36569; 45378; 71045; 74174; 74470; 75726; 76937; 80048; 80053; 82607; 82728; 83540; 84132; 84466; 85014; 85018; 85025; 85610; 85730; 86850; 86900; 86920; 99152; 99153; 99284; C1760; C1769; C1887; C1894; G0378; J2001; J2250; J2370; J2405; J3480; J7030; J7040; J7050; P9016; Q9967